=== PATIENT | female | born 1975 | race Two or more races ===

== ENCOUNTER 2020-03-03 16:56 | Outpatient (REF) | payer OTHER, SELFPAY | END 2020-03-03 16:57 | disposition home or self-care (01) | LOC: HO.LAB 16:56 | PROVIDERS: Visit Provider Internal Medicine | DX: Z20.828 Contact with and (suspected) exposure to other viral communicable diseases (principal) | CPT/HCPCS: C9803; U0003 ==

== ENCOUNTER → 2021-05-05 08:52 | Outpatient (BNVA) | payer OTHER, SELFPAY | PROVIDERS: PCP Internal Medicine; Visit Provider Physician Assistant Surgical | DX: E66.01 Morbid (severe) obesity due to excess calories (principal); Z68.41 Body mass index [BMI] 40.0-44.9, adult | CPT/HCPCS: 99202 ==

== ENCOUNTER 2021-05-09 09:26 | Outpatient (REF) | payer OTHER, SELFPAY ==
--- NOTE | ~2021-05-09 | XR_ITS ---
EXAMINATION: XR CHEST CLINICAL INFORMATION: Morbid obesity. COMPARISON: None TECHNIQUE: 2 views of the chest were obtained. FINDINGS: No significant abnormality is noted involving the heart, lungs, mediastinum, bony thorax or soft tissues. XR/XR chest 2V IMPRESSION: Unremarkable examination.
--- NOTE | 2021-05-09 09:42 | ECG_ITS ---
Test Reason : E66.01 Blood Pressure : / mmHG Vent. Rate : 076 BPM Atrial Rate : 076 BPM P-R Int : 166 ms QRS Dur : 094 ms QT Int : 400 ms P-R-T Axes : 069 033 017 degrees QTc Int : 450 ms Normal sinus rhythm Normal ECG No previous ECGs available Referred By: Micky Jade Electronically Signed By:SAMANTA ALEMAN MD
[2021-05-09 09:43] LABS: MANUAL DIFF FLAG NO
[2021-05-09 10:06] LABS: Basophils Percent Auto 0.3 % (0-2); Eosinophils Absolute Auto 0.1 X10*3/uL (0.0-0.4); Eosinophils Percent Auto 1.3 % (0-4); Hematocrit 32.9 % (37.0-47.0); Hemoglobin 10.3 g/dl (12.0-16.0); Imm Gran Abs Auto 0.04 X10*3/uL (0.00-0.03); Imm Gran Pct Auto 0.4 % (0.0-0.4); Lymphocytes Absolute Auto 2.4 X10*3/uL (1.2-4.9); Lymphocytes Percent Auto 26.7 % (20-40); Mean Corpuscular HGB Conc 31.3 g/dl (31.0-35.0); Mean Corpuscular Hemoglobin 28.7 pg (27.0-33.0); Mean Corpuscular Volume 91.6 fL (80.0-98.0); Mean Platelet Volume 10.5 fL (9.4-12.3); Monocytes Absolute Auto 0.6 X10*3/uL (0.1-1.2); Monocytes Percent Auto 6.7 % (2-11); Neutrophils Absolute Auto 5.9 x10*3/uL (2.0-8.3); Neutrophils Percent Auto 64.6 % (45-73); Platelet Count 238 X10*3/uL (160-400); Red Blood Count 3.59 X10*6/uL (4.20-5.50); Red Cell Distribution Width 13.5 % (11.0-16.0); White Blood Count 9.2 X10*3/uL (4.8-10.8)
[2021-05-09 10:23] LABS: Estimated Average Glucose 229 mg/dL; Hemoglobin A1c % 9.6 %
[2021-05-09 11:19] LABS: Folate 14.2 ng/mL (> or = 4.0); Vitamin B12 > 2000 pg/mL (200-900)
[2021-05-09 11:35] LABS: Alanine Aminotransferase 28 U/L (0-31); Albumin Level 3.7 g/dL (3.5-5.0); Alkaline Phosphatase 77 U/L (39-117); Anion Gap 11 (12-20); Aspartate Amino Transferase 25 U/L (5-31); Bilirubin Total 0.4 mg/dL (0.0-1.0); Blood Urea Nitrogen 15 mg/dL (9-16); C Reactive Protein 0.61 mg/dL (< or = 0.50); Calcium 9.4 mg/dL (8.4-10.2); Carbon Dioxide 26 mmol/L (22-29); Chloride 105 mmol/L (96-108); Cholesterol 165 mg/dL; Estimated Glomerular Filt Rate > 60; Glucose Random 181 mg/dL (60-115); HDL Cholesterol 52 mg/dL; Iron 79 mcg/dL (30-160); LDL Cholesterol Calculated 96 mg/dl; Percent Iron Saturation 22 % (15-50); Potassium 4.3 mmol/L (3.3-5.1); Sodium 138 mmol/L (135-145); Total Iron Binding Capacity 354 mcg/dL (228-428); Triglycerides 89 mg/dL; Unsaturated Iron Binding 275 ug/dL
[2021-05-09 11:59] LABS: Ferritin 36 ng/mL (10-250); TSH reflex Free T4 1.15 uIU/mL (0.32-4.0); Vitamin D 25-OH Total 34.4 ng/mL (>30)
[2021-05-10 17:46] LABS: Calcium (PTHI) 9.1 mg/dL (8.6-10.2); PTHI 42 pg/mL (14-64)
[2021-05-12 03:11] LABS: Zinc 68 mcg/dL (60-130)
[2021-05-13 18:02] LABS: Vitamin B1 6 nmol/L (8-30)
[2021-05-14 21:01] LABS: Vitamin A 38 mcg/dL (38-98)
== END 2021-05-09 09:27 | disposition home or self-care (01) ==
LOC: HO.LAB 09:26
PROVIDERS: PCP Internal Medicine; Visit Provider Physician Assistant Surgical
DX: E66.01 Morbid (severe) obesity due to excess calories (principal); Z68.41 Body mass index [BMI] 40.0-44.9, adult
CPT/HCPCS: 36415; 71046; 80053; 80061; 82306; 82607; 82728; 82746; 83036; 83540; 83970; 84425; 84443; 84590; 84630; 85025; 86140; 93005

== ENCOUNTER 2021-05-12 08:51 | Outpatient (REF) | payer OTHER, SELFPAY ==
[2021-05-13 14:25] LABS: H Pylori Breath Test Positive (Negative)
== END 2021-05-12 08:52 | disposition home or self-care (01) ==
LOC: HO.LNP 08:51
PROVIDERS: Physician Assistant Surgical; PCP Internal Medicine; Visit Provider Physician Assistant
DX: E66.01 Morbid (severe) obesity due to excess calories (principal); Z68.41 Body mass index [BMI] 40.0-44.9, adult
CPT/HCPCS: 83013; 99211

== ENCOUNTER → 2021-05-24 08:17 | Outpatient (BNVA) | payer OTHER, SELFPAY | PROVIDERS: PCP Internal Medicine; Visit Provider Dietitian, Registered | DX: E66.01 Morbid (severe) obesity due to excess calories (principal); Z68.41 Body mass index [BMI] 40.0-44.9, adult | CPT/HCPCS: 97802 ==

== ENCOUNTER → 2021-06-03 08:15 | Outpatient (BNVA) | payer OTHER, SELFPAY | PROVIDERS: PCP Internal Medicine; Visit Provider Surgery | DX: Z13.89 Encounter for screening for other disorder (principal) ==

== ENCOUNTER 2021-06-16 08:19 | Outpatient (REF) | payer OTHER, SELFPAY ==
--- NOTE | ~2021-06-16 | US_ITS ---
EXAMINATION: US COMPLETE ABDOMEN WITH LIVER ELASTOGRAPHY CLINICAL INFORMATION: Obesity COMPARISON: None. TECHNIQUE: Real-time imaging of the abdominal viscera. Noninvasive ultrasound liver fibrosis assessment is performed using Pool ElastPQ point quantification shear wave elastography (2D-SWE) with a C5-2 MHz transducer. Multiple elastography samples are obtained. Exam is limited due to body habitus. FINDINGS: PANCREAS: Not well visualized due to bowel gas ABDOMINAL AORTA: The proximal, middle, and distal aortic segments are normal in caliber. INFERIOR VENA CAVA: Visualized portions are normal. LIVER: Liver echotexture is slightly increased. The liver is normal in size and contour.. No focal lesion or intrahepatic biliary duct dilatation. The right lobe measures 15 cm in length. The left lobe measures 4 cm in length. Portal flow is normal/hepatopedal Shear wave liver elastography median stiffness is 1.1 m/s (reference: normal median stiffness is 1.3 m/s or less). IQR/median stiffness to assess sampling precision is 0.16 (reference: good quality data set is IQR/median stiffness of 0.15 or less). GALLBLADDER: Normal. The gallbladder is physiologically distended without evidence of stones, sludge, polyps, wall thickening or pericholecystic fluid. COMMON BILE DUCT: Normal in caliber measuring 0.4 cm in diameter. RIGHT KIDNEY: Normal. No hydronephrosis. No renal calculi or focal parenchymal lesions. The kidney measures 10.5 cm in maximum dimension. LEFT KIDNEY: Normal. No hydronephrosis. No renal calculi or focal parenchymal lesions. The kidney measures 11.8 cm in maximum dimension. SPLEEN: Normal. The spleen measures 12.3 cm in maximum dimension. FREE FLUID: None. US/US abdomen comp w elastography IMPRESSION: 1. Impression: Limited exam due to body habitus. Slightly echogenic liver. Nonvisualization of the pancreas. 2. Liver elastography: Adequate liver sampling. Normal liver stiffness. REFERENCE: Society of Radiologists in Ultrasound Liver Stiffness Thresholds (2020): LIVER STIFFNESS THRESHOLDS: *Liver Stiffness equal or less than 1.3 m/s: High probability of being normal. *Liver Stiffness less than 1.7 m/s: In the absence of other known clinical signs, rules out compensated advanced chronic liver disease. *Liver Stiffness 1.7-2.1 m/s: Suggestive of compensated advanced chronic liver disease but need further test for confirmation. *Liver Stiffness over 2.1 m/s: Rules in compensated advanced chronic liver disease. *Liver Stiffness over 2.4 m/s: Suggestive of clinically significant portal hypertension. QUALITY OF DATA SET: *IQR/Median value equal or less than 0.15 implies a quality data set. *IQR/Median value over 0.15 implies a poor quality data set. SIGNIFICANT CHANGE FROM PRIOR EXAM: Significant change if liver stiffness measurement is 10% or greater from prior exam. OTHER CONSIDERATIONS: The stage of liver fibrosis may be overestimated in the setting of acute hepatitis, liver inflammation, elevated liver function tests, hepatic vascular congestion, obstructive cholestasis, non-fasting state, and infiltrative diseases such as amyloidosis and lymphoma. In some patients with NAFLD, the liver stiffness thresholds for compensated advanced chronic liver disease may be lower. In causes other than viral hepatitis and NAFLD, liver stiffness thresholds are not well established.
--- NOTE | ~2021-06-16 | FL_ITS ---
EXAMINATION: XR FLUOROSCOPY UPPER GI WITH AIR CLINICAL INFORMATION: 1 abnormal COMPARISON: None TECHNIQUE: Routine upper GI air-contrast study was performed. FINDINGS: Following oral administration of thick barium and effervescent granules there is normal propagation of bolus from the oral cavity through the pharynx, esophagus into stomach without any evidence of obstruction, narrowing or stricture. The course, caliber and peristalsis of the stomach, duodenal bulb and the sweep is normal. The mucosal pattern of the stomach and the duodenum is normal. No gastroesophageal reflux or hiatal hernia seen. FLUOROSCOPY TIME: 1.2 minutes DOSE AREA PRODUCT: 21.845 Gycm2 FL/FL upper GI w air IMPRESSION: Unremarkable upper GI air-contrast study.
[2021-06-19 10:33] LABS: H Pylori Breath Test Negative (Negative)
== END 2021-06-16 08:20 | disposition home or self-care (01) ==
LOC: HO.US 08:19
PROVIDERS: Physician Assistant Surgical; Visit Provider Surgery
DX: Z01.818 Encounter for other preprocedural examination (principal); E66.01 Morbid (severe) obesity due to excess calories; Z68.41 Body mass index [BMI] 40.0-44.9, adult; E11.9 Type 2 diabetes mellitus without complications
CPT/HCPCS: 36415; 74246; 76705; 76981; 83013; 97803; 99211

== ENCOUNTER → 2021-06-30 08:06 | Outpatient (BNVA) | payer OTHER, SELFPAY | PROVIDERS: PCP Internal Medicine; Referring Provider Physician Assistant Surgical; Visit Provider Dietitian, Registered | DX: E66.9 Obesity, unspecified (principal); Z68.39 Body mass index [BMI] 39.0-39.9, adult; Z71.3 Dietary counseling and surveillance | CPT/HCPCS: 97803 ==

== ENCOUNTER → 2021-07-04 09:27 | Outpatient (BNVA) | payer OTHER, SELFPAY | PROVIDERS: PCP Internal Medicine; Visit Provider Surgery ==

== ENCOUNTER → 2021-07-20 13:37 | Outpatient (BNVA) | payer OTHER, SELFPAY | PROVIDERS: PCP Internal Medicine; Visit Provider Surgery | DX: Z01.818 Encounter for other preprocedural examination (principal) ==

== ENCOUNTER → 2021-07-22 08:56 | Outpatient (BNVA) | payer OTHER, SELFPAY | PROVIDERS: PCP Internal Medicine; Visit Provider Surgery | DX: Z13.89 Encounter for screening for other disorder (principal) ==

== ENCOUNTER 2021-07-27 11:46 | Inpatient (IN) | payer OTHER, SELFPAY ==
[2021-07-21 13:24] VITALS: BMI 37.9
[2021-07-22 08:50] LABS: MANUAL DIFF FLAG NO
[2021-07-22 09:12] LABS: Basophils Percent Auto 0.3 % (0-2); Eosinophils Absolute Auto 0.1 X10*3/uL (0.0-0.4); Eosinophils Percent Auto 0.8 % (0-4); Hematocrit 34.8 % (37.0-47.0); Hemoglobin 10.9 g/dl (12.0-16.0); Imm Gran Abs Auto 0.02 X10*3/uL (0.00-0.03); Imm Gran Pct Auto 0.3 % (0.0-0.4); Lymphocytes Absolute Auto 1.9 X10*3/uL (1.2-4.9); Lymphocytes Percent Auto 25.3 % (20-40); Mean Corpuscular HGB Conc 31.3 g/dl (31.0-35.0); Mean Corpuscular Hemoglobin 28.4 pg (27.0-33.0); Mean Corpuscular Volume 90.6 fL (80.0-98.0); Mean Platelet Volume 10.7 fL (9.4-12.3); Monocytes Absolute Auto 0.7 X10*3/uL (0.1-1.2); Monocytes Percent Auto 8.5 % (2-11); Neutrophils Percent Auto 64.8 % (45-73); Platelet Count 247 X10*3/uL (160-400); Red Blood Count 3.84 X10*6/uL (4.20-5.50); Red Cell Distribution Width 14.6 % (11.0-16.0); White Blood Count 7.6 X10*3/uL (4.8-10.8)
[2021-07-22 09:20] LABS: INTERNATIONAL NORM RATIO 1.1 (0.9-1.1); Prothrombin Time 12.7 SEC (9.9-13.0)
[2021-07-22 09:23] LABS: Partial Thromboplastin Time 37.1 SEC (24.1-38.0)
[2021-07-22 09:29] LABS: Estimated Average Glucose 111 mg/dL; Hemoglobin A1c % 5.5 %
[2021-07-22 09:38] LABS: Alanine Aminotransferase 20 U/L (0-31); Alkaline Phosphatase 80 U/L (39-117); Anion Gap 10 (12-20); Aspartate Amino Transferase 26 U/L (5-31); Bilirubin Total 0.7 mg/dL (0.0-1.0); Blood Urea Nitrogen 11 mg/dL (9-16); C Reactive Protein 1.84 mg/dL (< or = 0.50); Calcium 9.5 mg/dL (8.4-10.2); Carbon Dioxide 25 mmol/L (22-29); Chloride 108 mmol/L (96-108); Cholesterol 208 mg/dL; Creatinine Clr Calc Pharmacy 102.1; Estimated Glomerular Filt Rate > 60; Glucose Random 88 mg/dL (60-115); HDL Cholesterol 40 mg/dL; LDL Cholesterol Calculated 155 mg/dl; Potassium 4.7 mmol/L (3.3-5.1); Sodium 138 mmol/L (135-145); Total Protein 7.5 g/dL (6.5-8.0); Triglycerides 69 mg/dL
[2021-07-22 10:02] LABS: Insulin 11 uU/mL (2-29)
--- NOTE | 2021-07-23 08:28 | MHC.SHP ---
Pre-Procedural Eval Section A Date of Service: 07/23/21 The patient is an INPATIENT: Yes The History & Physical has been completed within 30 days and I have reviewed it.: Yes Section B Chief Complaint: obesity Relevant Family History (Specify if Yes): No Relevant Social History: None Present Medications: None Medical History: No relevant PMH History of Previous Operations: No relevant previous surgery Allergies: Allergies Allergy/AdvReac Type Severity Reaction Status Date / Time lisinopril AdvReac Mild Cough Verified 07/21/21 13:24 Review of Systems Sugical H&P ROS: Negative: Constitution, Cardiovascular, Respiratory, Neurological, Psychiatric, Hem-Onc, Allergic/Immunologic, Gastrointestinal, Genitourinary, Musculoskeletal, Integumentary, Endocrine and Eyes/Ears/Nose/Throat Exam Surgical H&P Exam: Normal: HEENT, Normal: Heart, Normal: Lungs, Normal: Extremities, Normal: Abdomen, Normal: Skin and Normal: Neurological Plan Diagnosis/Plan: Unchanged I have reviewed the history and physical and performed a pertinent physical examination on my patient. No changes have occurred unless specified.
--- NOTE | 2021-07-26 08:20 | P.CONAN_ITS ---
Documented by User: Alicia Fitzpatrick NP 07/26/21 08:21 HPI - Anesthesia Eval Consult details Narrative: 46yo F for Gastrectomy Sleeve,EGD,possible diaphragmatic hernia,Possible ventral hernia,possible open PMFSH Active Problems Active Problems: All Active Problems (Updated 07/21/21 @ 13:24 by Silva Gold RN) Morbid obesity with BMI of 40.0-44.9, adult (Acute) Diabetes (Acute) HTN (hypertension) (Acute) Hypercholesteremia (Acute) Obesity (Acute) BMI 39.0-39.9,adult (Acute) BMI 38.0-38.9,adult (Acute) Anxiety (Acute) Past Medical History Medical History (Updated 07/27/21 @ 13:56 by Festus Bolanos MD) Anxiety COVID-19 vaccine series completed Diabetes Elevated cholesterol HTN (hypertension) Steatosis, liver Family History Family History (Updated 05/05/21 @ 09:21 by Bridgette Molina) Mother Hypertension Diabetes Father Diabetes Sister Hypertension Sister Hypertension Sister Hypertension Thyroid condition Brother Hypertension Brother Hypertension Diabetes Brother Hypertension Brother No problems noted. Surgical History Surgical History (Updated 05/05/21 @ 09:22 by Bridgette Molina) No history of previous surgery Social History Social History (Updated 05/05/21 @ 09:21 by Bridgette [employer]) Are you a primary skin care specialist to a significant other at home: No Do you presently have visiting nurse or other home services: No Alcohol intake: never Patient Tobacco Use Status: Never used Tobacco Use of substances other than those prescribed or required for medical reasons: No Have you been hit, kicked, punched, or otherwise hurt by someone within the past year? If so, by whom?: No Are you DNR?: No Advance Directives: No (states is sister but no official form @ [facility] [place]) Advance Directives Information Provided: Yes (brochure mailed) Advance Directives on File: No Recently lost weight without trying: No Eating poorly because of decreased appetite: No Nutrition Risks: No Nutritional Risk Patient : No FDLMP: 06/27/21 Poor oral hygiene: No (has crowns upper front) Meds Allergies Allergy/AdvReac Type Severity Reaction Status Date / Time lisinopril AdvReac Mild Cough Verified 07/27/21 12:05 Home Medications Medication Instructions Recorded Confirmed Last Taken Type atorvastatin 20 mg tablet 20 mg PO DAILY 05/05/21 07/27/21 07/26/21 History glipizide 5 mg tablet, extended 5 mg PO DAILY 05/05/21 07/27/21 07/26/21 History release 24 hr labetalol 100 mg tablet 100 mg PO BID 05/05/21 07/27/21 07/26/21 History sitagliptin 100 mg tablet (Januvia) 100 mg PO DAILY 05/05/21 07/20/21 07/25/21 History Exam Exam Date and Time: July 26, 2021 0820 Height,Weight and Vital Signs: Height 5 ft 3 in Weight 97.069 kg Pertinent Lab Results Pertinent Lab Results: Laboratory Tests 07/22/21 07/22/21 07/22/21 08:45 08:48 08:48 WBC 7.6 RBC 3.84 L Hgb 10.9 L Hct 34.8 L MCV 90.6 MCH 28.4 MCHC 31.3 RDW 14.6 Plt Count 247 MPV 10.7 Immature Gran % (Auto) 0.3 Neut % (Auto) 64.8 Lymph % (Auto) 25.3 Scurry % (Auto) 8.5 Eos % (Auto) 0.8 Baso % (Auto) 0.3 Lymph # (Auto) 1.9 Scurry # (Auto) 0.7 Eos # (Auto) 0.1 Baso # (Auto) 0.0 Abs Immat Gran (auto) 0.02 Absolute Neuts (auto) 5.0 Absolute Nucleated RBC 0.000 Nucleated RBC % (auto) 0.0 PT 12.7 INR 1.1 APTT 37.1 Sodium Potassium Chloride Carbon Dioxide Anion Gap BUN Creatinine Estim Creat Clear Calc Estimated GFR Random Glucose Estimat Average Glucose Hemoglobin A1c % Insulin Level Calcium Total Bilirubin AST ALT Alkaline Phosphatase C-Reactive Protein Total Protein Albumin Triglycerides Cholesterol LDL Cholesterol, Calc HDL Cholesterol TSH Blood Type O Positive Antibody Screen NEGATIVE 07/22/21 07/22/21 08:48 08:48 WBC RBC Hgb Hct MCV MCH MCHC RDW Plt Count MPV Immature Gran % (Auto) Neut % (Auto) Lymph % (Auto) Scurry % (Auto) Eos % (Auto) Baso % (Auto) Lymph # (Auto) Scurry # (Auto) Eos # (Auto) Baso # (Auto) Abs Immat Gran (auto) Absolute Neuts (auto) Absolute Nucleated RBC Nucleated RBC % (auto) PT INR APTT Sodium 138 Potassium 4.7 Chloride 108 Carbon Dioxide 25 Anion Gap 10 L BUN 11 Creatinine 0.78 Estim Creat Clear Calc 102.1 Estimated GFR > 60 Random Glucose 88 Estimat Average Glucose 111 Hemoglobin A1c % 5.5 Insulin Level 11 Calcium 9.5 Total Bilirubin 0.7 AST 26 ALT 20 Alkaline Phosphatase 80 C-Reactive Protein 1.84 H Total Protein 7.5 Albumin 4.0 Triglycerides 69 Cholesterol 208 D LDL Cholesterol, Calc 155 HDL Cholesterol 40 D TSH 1.80 Blood Type Antibody Screen Narrative Narrative: EKG 05/2021 Vent. Rate : 076 BPM ? ? Atrial Rate : 076 BPM ?? P-R Int : 166 ms? QRS Dur : 094 ms ? ? QT Int : 400 ms ? ? ? P-R-T Axes : 069 033 017 degrees ?? QTc Int : 450 ms ? Normal sinus rhythm Normal ECG No previous ECGs available Assessment and Plan Assessment Anesthesia Assessment: Chart Reviewed Documented by User: Percy Norton MD 07/27/21 13:59 [facility] Past Medical History Medical History (Updated 07/27/21 @ 13:56 by Festus Bolanos MD) Anxiety COVID-19 vaccine series completed Diabetes Elevated cholesterol HTN (hypertension) Steatosis, liver Family History Family History (Updated 05/05/21 @ 09:21 by Bridgette [employer]) Mother Hypertension Diabetes Father Diabetes Sister Hypertension Sister Hypertension Sister Hypertension Thyroid condition Brother Hypertension Brother Hypertension Diabetes Brother Hypertension Brother No problems noted. Family history of problems with anesthesia: No Surgical History Surgical History (Updated 05/05/21 @ 09:22 by Bridgette Molina) No history of previous surgery History of Problems with Anesthesia: No Social History Social History (Updated 05/05/21 @ 09:21 by Bridgette Molina) Are you a primary skin care specialist to a significant other at home: No Do you presently have visiting nurse or other home services: No Alcohol intake: never Patient Tobacco Use Status: Never used Tobacco Use of substances other than those prescribed or required for medical reasons: No Have you been hit, kicked, punched, or otherwise hurt by someone within the past year? If so, by whom?: No Are you DNR?: No Advance Directives: No (states is sister but no official form @ [facility] [place]) Advance Directives Information Provided: Yes (brochure mailed) Advance Directives on File: No Recently lost weight without trying: No Eating poorly because of decreased appetite: No Nutrition Risks: No Nutritional Risk Patient : No FDLMP: 06/27/21 Poor oral hygiene: No (has crowns upper front) Meds Allergies Allergy/AdvReac Type Severity Reaction Status Date / Time lisinopril AdvReac Mild Cough Verified 07/27/21 12:05 Home Medications Medication Instructions Recorded Confirmed Last Taken Type atorvastatin 20 mg tablet 20 mg PO DAILY 05/05/21 07/27/21 07/26/21 History glipizide 5 mg tablet, extended 5 mg PO DAILY 05/05/21 07/27/21 07/26/21 History release 24 hr labetalol 100 mg tablet 100 mg PO BID 05/05/21 07/27/21 07/26/21 History sitagliptin 100 mg tablet (Januvia) 100 mg PO DAILY 05/05/21 07/20/21 07/25/21 History Exam Airway Mallampati Class: II TM Dist: >3cm Neck ROM: Full Partial: Upper (permanent) Loose/Missing/Broken Teeth: No Heart: rrr+[id number] Lungs: cta b/l Assessment and Plan Assessment Anesthesia Assessment: Anesthesia Plan Discussed Final Anesthetic Review Family History of Problems with Anesthesia: No History of Problems with Anesthesia: No NPO: Yes ASA Class: III Final Preanesthetic Review: No Changes in Pt Med Stat, Meds/Allgs Chart Reviewed, Consent Obtained/Reviewed and Anes Risks/Benef Reviewed Patient Risk: Intermediate Procedure Risk: Intermediate Assessment/Block/Sedation in SS: Assess/Block/Sedation-SS Anesthetic Plan Anesthetic Plan: GA and Agree w/ Assess. and Plan Disposition: Standard PACU
[2021-07-26 15:41] LABS: COVID-19 Test Negative (Negative); IDNOW Serial# 16C4AD1C
[2021-07-27] VITALS (12 sets, daily range): BP systolic 133–178; BP diastolic 57–90; PULSE 74–88; RESP 16–26; TEMP 36.2–36.7; O2SAT 97–100
[2021-07-27 12:11] LABS: UPreg QC Valid YES; Urine Pregnancy NEGATIVE (NEGATIVE)
[2021-07-27 12:27] LABS: Glucose, Whole Blood 71 mg/dL (60-115)
[2021-07-27] MEDS: Lactated Ringers 1,000 ML 100 ML IVCONT ×2 (13:13→19:59)
[2021-07-27] MEDS: Lactated Ringers 1,000 ML 999 ML IV (13:14)
--- NOTE | 2021-07-27 13:52 | PM.OP ---
Brief Operative Note Date of Service: 07/27/21 Pre-op diagnosis: Severe obesity with comorbidities (see below) Post-op diagnosis: same Procedure: INITIAL PATIENT BMI ON PRESENTATION AT OUR OFFICE: 44.3 kg/m2 LAST BMI BEFORE SURGERY: 37.4 kg/m2 COMORBIDITIES: hypertension, non-insulin dependent diabetes, hyperlipidemia, anxiety, liver steatosis ?The patient presented to the Weight Management Program with significant obesity that was negatively impacting the patient's comorbidities as listed above.? The program is a phased program with a special focus on preoperative medical weight management to promote substantial weight loss and prepare the patients for the second phase of the program: bariatric surgery. The patient participated in an intensive weekly lifestyle ?intervention and exercise program during which the patient ?has lost between the initial office visit and the last preoperative visit 38.4lbs, or 15.35% of initial actual body weight. It was deemed appropriate for the patient to now have bariatric surgery. In light of the current Covid-19 pandemic and the well documented strong association of obesity and increased risk of worse outcomes if infected with Covid-19 (REFERENCES:https://pubmed.ncbi.nlm.nih.gov/63883604/,?https://pubmed.ncbi.nlm.nih.gov/24641432/), any delay in undergoing bariatric surgery may lead to the patient's worsening health condition and increased?risk of more severe Covid-19 disease if infected. In addition a recent?study from [facility] published in [employer] on 02/28/2021 ([email or web address]) found that, among patients with obesity, substantial weight loss achieved with surgery was associated with improved outcomes of COVID-19 infection. The findings suggest that obesity can be a modifiable risk factor for the severity of COVID-19 infection. In addition, the patient met the BMI-criteria for bariatric surgery based on the BMI on initial presentation. The patient should not be penalized for achieving such weight loss because ?it is not sustainable long-term without surgical intervention and it was achieved in preparation for bariatric surgery ?under my direction and based on my published research ([email or web address]).[email or web address] and?https://www.soard.org/article/[email or web address])37006-X/pdf) ?that a 10% preoperative weight loss improves long-term weight loss after surgery and reduces perioperative complications.? Insurance carriers such as [facility] have endorsed my recommendations ?and have included in their policies criteria to include a 10% preoperative weight loss requirement. PROCEDURE: Esophago-gastroscopy, laparoscopic sleeve gastrectomy and laparoscopic gastropexy INDICATIONS: This is a 46 year-old female who was electively scheduled for laparoscopic, possibly open sleeve gastrectomy. The risks and complications of the procedure were discussed with the patient in advance, particularly the possibility of ; pulmonary embolism; staple line leak; bleeding; GERD; cardiac, pulmonary, or renal complications; as well as long-term problems such as insufficient weight loss, vitamin deficiency, strictures, or ulcers. The patient understood all the risks, and was in agreement to proceed with surgery. DESCRIPTION OF PROCEDURE: After informed consent was obtained from the patient, the patient was given preoperative antibiotics, and was transferred to the operating room. After successful induction of general anesthesia, pneumatic compression devices were placed on both lower extremities. An upper endoscopy was performed next. The oropharynx and esophagus appeared to be within normal limits. There was no diaphragmatic hernia present consistent with the findings of the preoperative upper GI. The stomach was entered. Then after all fluid and air were suctioned and the stomach was fully decompressed, the scope was withdrawn and secured in the mid esophagus. The patient was then prepped and draped in the usual sterile manner, and abdominal access was established at the right upper quadrant with the Essence technique. A 12 mm blunt port was inserted, and the abdomen was insufflated with CO2 to a pressure of 15 mmHg. Under direct visualization, additional ports were placed, specifically two 5 mm Versi-step ports to the left upper quadrant, and a 5 mm Versi-Step port to the right upper quadrant. 1% lidocaine plain was used to infiltrate all port sites as well as all fascia defects. Following that, the patient was placed in a steep reverse Trendelenburg position. An additional 5 mm port was placed to the right flank for the Mediflex retractor that was used to retract the left lobe of the liver. The gastro-esophageal fat pad was opened with the ultrasonic device (Thunderbeat, Olympus) and the anterior esophagus and hiatus were exposed. The angle of His was opened with the ultrasonic device the fundus of the stomach from any diaphragmatic and splenic attachments. I then opened the gastrocolic ligament between the transverse colon and the greater curvature of the stomach with the ultrasonic device to enter the lesser sac and facilitate the ligation of the short gastric vessels. I started at a mid-point along the greater curvature and using the Thunderbeat, all short gastric vessels were divided all the way to the angle of His until the left yumiko was completely dissected at its entirety. I then divided the gastro-colic ligament distally to a distance of about 3-4 cm proximal to the pylorus.? The stomach was then divided transversely with one Endo COLLINS-45 purple and five COLLINS-6s0 articulating orange loads using the AEON stapler and loads. Every effort was made that the gastric sleeve had a tubular shape and an even caliber throughout. Once the sleeve resection was completed, the staple line of the gastric sleeve was reinforced with Hemoclips. The resected stomach was retrieved without difficulty from the Essence port. A gastropexy was then performed in order to prevent postoperative GERD and partial gastric volvulus. Several interrupted 2.0 Surgidac sutures were placed between the sleeve's staple line and the previously divided greater omentum and gastro-colic ligament using the Endo-Stitch device. ?An upper endoscopy was performed. There was no narrowing at the GE junction. The scope was easily advanced all the way to the pylorus which was clearly visualized. There was no narrowing anywhere and the sleeve's caliber was even throughout. The sleeve's staple line was inspected and there was no evidence of ischemia, bleeding or dehiscence. At that point the gastroscope was withdrawn from the patient?s mouth while we were decompressing the bowel and the stomach from any remaining air. I looked into the lesser sac to see how the sleeve was situating and it was situating well. There was no bleeding from the staple line, spleen, or short gastric vessels. The Mediflex retractor was removed, and the undersurface of the liver was inspected and there was no bleeding. The patient was placed in supine position. I closed the fascial defect of the 12 mm port site with a figure of eight #1 Polysorb suture. Then 100 cc 0.25 % Marcaine plain with 10 mg of Dexamethasone were used to infiltrate the fascial closure as well as all skin incisions. A total of 7ml of Zynrelef were applied in the wound. At this point, the abdomen was deflated, all ports were removed under direct vision, and no bleeding was noted from any of the port sites. The skin incisions were irrigated with saline and were closed with 4-0 absorbable monofilament sutures. Steri-Strips and OpSites were used to cover all incisions. The patient was extubated and was transferred in stable condition to the recovery room for further care. I was present and performed all zuniga parts of the procedure. Ms. Jacobs was the it assistant. There were no residents to assist with this case. Ashvin Bolanos MD, PhD, FACS Surgeon: Festus Bolanos MD Anesthesia: GETA, local and other (TAP block) Was an Quality Compliance Coordinator used for this Procedure?: No Quality Compliance Coordinator: Kimberly Jacobs Estimated blood loss (mL): 10 IV fluids (mL): 2,800 Urine output (mL): 0 (No Stevens to record output) Pathology: other (Stomach) Condition: stable Disposition: PACU
--- NOTE | 2021-07-27 13:54 | PM.PNGS ---
Subjective Subjective Date of Service: 07/28/21 Interval history: Patient has mild incisional pain, but was able to ambulate and use the incentive spirometer. She is tolerating phase 1 bariatric diet Physical Exam Vital Signs: Vital Signs: Last Vital Signs Temp 98.0 F 07/27/21 12:05 Pulse 88 07/27/21 12:05 Resp 16 07/27/21 12:05 BP 178/57 H 07/27/21 12:05 Pulse Ox 100 07/27/21 12:05 BMI result Body Mass Index 37.9 GI: Inspection: Yes normal to inspection, Yes incision (clean, dry and intact) and Yes obesity Extrem: Right lower extremity: normal to inspection (no calf tenderness) Left lower extremity: normal to inspection (no cakf tenderness) Objective Data Active Medications Lactated Ringer's (Lr) 1,000 mls @ 100 mls/hr IVCONT .Q10H DELIA Last Admin: 07/27/21 13:13 Dose: 100 mls/hr Documented by: CLAIRE Lactated Ringer's (Lr) 1,000 mls @ 999 mls/hr IV .Q1H1M DELIA Stop: 07/27/21 14:00 Last Admin: 07/27/21 13:14 Dose: 999 mls/hr Documented by: CLAIRE Labs CBC & Chem 7: 07/28/21 05:25 07/28/21 05:25 Labs: Laboratory Results - last 24 hr 07/26/21 07/27/21 07/27/21 14:40 11:45 12:21 POC Glucose 71 Urine Test NEGATIVE COVID-19 (RAHEL) Negative COVID-19 Clin Com See Note Procedures Date of Service Date of Service: 07/28/21 Progress Note: A&P Assessment and plan (1) Obesity: Status: Acute Assessment and Plan: s/p laparoscopic sleeve gastrectomy and gastropexy Doing well Check am labs. If OK, will discharge home (2) BMI 37.0-37.9, adult: Status: Acute (3) HTN (hypertension): Status: Acute (4) Hypercholesteremia: Status: Acute (5) Anxiety: Status: Acute (6) Diabetes: Status: Acute (7) Steatosis, liver: Status: Acute (8) S/P laparoscopic sleeve gastrectomy: Status: Acute Time Spent With Patient Time: Total time spent is greater than 50% in coordination of care (as documented) at patient's floor/unit and/or counseling patient: Quality Stroke Does the patient have a stroke diagnosis?: No VTE Prior VTE?: No VTE Risk Level:: Surgical - moderate VTE Device Contraindication: N/A - Device Ordered VTE Drug Contraindication: Treatment Not Indicated
[2021-07-27 14:27] LABS: Glucose, Whole Blood 70 mg/dL (60-115)
--- NOTE | 2021-07-27 17:28 | PM.DS ---
DS: Providers Provider Date of Service: 07/28/21 Date of admission: 07/27/21 11:46 Primary care physician: Rosa Hollis MD DS: Diagnosis Discharge Diagnosis (1) Obesity: Status: Acute (2) BMI 37.0-37.9, adult: Status: Acute (3) HTN (hypertension): Status: Acute (4) Hypercholesteremia: Status: Acute (5) Anxiety: Status: Acute (6) Diabetes: Status: Acute (7) Steatosis, liver: Status: Acute DS: Summary Hospital Course Hospital Course: ADMITTING DIAGNOSIS: morbid obesity, hyperlipidemia, diabetes, HTN DISCHARGE DIAGNOSIS: same, s/p laparoscopic sleeve gastrectomy PAST SURGICAL HISTORY: none PROCEDURE: upper endoscopy, laparoscopic sleeve gastrectomy DISCHARGE SUMMARY: History of Present Illness: The patient is a 46 year-old woman with a BMI of 44.3 kg/m2 and associated co-morbidities as described above. The patient had extensive work-up,lost 35.7 lbs preoperatively and was electively scheduled for laparoscopic, possible open sleeve gastrectomy and gastropexy. Risks and complications of the surgery were discussed with the patient in advance, particularly the possibility of , pulmonary embolism, anastomotic leak, bleeding, bowel injury, GERD, cardiac, renal or pulmonary complications. The patient understood all the risks and was in agreement with the surgical plan. Hospital Course: The patient underwent an uneventful laparoscopic sleeve gastrectomy with gastropexy on the day of admission. Postoperatively, the patient was transferred to the surgical floor. The patient received IV Acetaminophen and IV dilaudid for pain control. Patient was started on bariatric phase 1 diet POD #0. On postoperative day one, the patient was feeling well without nausea, vomiting, fevers, or tachycardia. The patient had some mild incisional pain and the abdomen was soft. On the morning of postoperative day one, the patient was continued on 1 ounce of water or ice every half hour. During the day, the patient did fairly well, having some incisional pain, but able to ambulate adequately and to tolerate liquids well. Since the patient is doing well, we decided that the patient was ready to be discharged. The patient was given instructions to follow-up with me next week and to call my office for any fever over 101, persistent abdominal pain, nausea, vomiting, GERD, symptoms of DVT such as calf tenderness, or leg swelling, or pulmonary embolism such as chest pain or shortness of breath. The patient was also instructed to drink 40-60 ounces of liquids per day using the 1-ounce cups. The patient had been given prescriptions for Tylenol for pain, Zofran prn for nausea, and pantoprazole and carafate previously. The patient was encouraged to ambulate and use the incentive spirometer. The patient was allowed to shower, but no baths, and encouraged to stay active at home. All of these instructions were given to the patient personally. All questions were answered and the patient understood all instructions, the instructions were also given to the patient in print. Time Spent with Patient Time attestation: Total time spent providing and/or coordinating discharge services: Discharge coordination time: Less than 30 minutes Quality: Safe Use of Opioids Does Pt have an Active Cancer Diagnosis on the Problem List?: No Quality: Stroke Does the patient have a stroke diagnosis?: No Physical Exam Vital Signs: Vital Signs: Last Vital Signs Temp 98.0 F 07/27/21 12:05 Pulse 88 07/27/21 12:05 Resp 16 07/27/21 12:05 BP 178/57 H 07/27/21 12:05 Pulse Ox 100 07/27/21 12:05 BMI result Body Mass Index 37.9 DS: Data Data Completed and Pending Pending studies at discharge: Pending at discharge 07/27/21 16:16 Surgical [PTH] Routine Labs on day of discharge: Laboratory Results - last 24 hr 07/27/21 07/27/21 07/27/21 11:45 12:21 14:21 POC Glucose 71 70 Urine Test NEGATIVE Discharge Plan Discharge Anticipated Discharge Date/Time: 07/28/21 10:23 Patient Disposition: Home, Self-Care Discharge Diagnosis: s/p sleeve gastrectomy Referrals: Rosa Hollis MD [Primary Care Provider] - 1 Week Discharge Medications: Continued labetalol 100 mg tablet 100 mg PO BID 0RF pantoprazole 40 mg tablet,delayed release (DR/EC) 40 mg PO DAILY Qty: 30 2RF sucralfate 100 mg/mL suspension 10 ml PO BID Qty: 400 2RF ondansetron HCl 4 mg tablet 4 mg PO Q12H Qty: 20 0RF Held atorvastatin 20 mg tablet 20 mg PO DAILY 0RF Hold Instructions: Resume on 08/01/21. Discontinued thiamine HCl (vitamin B1) 100 mg tablet 100 mg PO DAILY Qty: 30 2RF Januvia 50 mg tablet 1 tab PO DAILY 0RF glipizide 5 mg tablet extended release 24hr 5 mg PO DAILY 0RF Discharge Orders: Discharge Order (Routine); Ordered 07/28/21 Ordered By: Festus Bolanos Activity on Discharge: No heavy lifting Stand Alone Forms: Patient Portal Discharge page Care Plan Goals: weight loss Health Concerns: obesity Plan of Treatment: No tub baths, sex or returning to work until discussed at first post op appointment. No exercise, alcohol, tobacco or illegal drug use. Continue to use incentive spirometer hourly while awake. Walk in home for 5- 10 minutes every 2 hours during the first week. Continue phase 1 diet today and start phase 2 diet tomorrow morning. Follow all instructions in the bariatric handbook and call with any questions. 1. Please call your doctor or come back to the emergency room should any new symptoms arise. 2. You will receive a courtesy call from [facility] 24-48 hours after discharge. 3. Activity: abstain from alcohol, practice limited stair climbing, no bending, no driving, no exercise, no illicit substances, no lifting, no sex, no tub bath, no work. 4. Diet: continue as discussed with Dr. Bolanos. 5. Dressing Change/Wound Care: Do not change or remove surgical dressings unless they are wet or soiled. 6. Call your doctor if: - Your temperature exceeds 101.5 F - You experience excessive pain or swelling - You have an unexpected reaction to medication - You have excessive bleeding - You experience continued vomiting/nausea - Your incision begins to separate - Your incision shows signs of infection such as increased redness, swelling, excessive pain, heat, or drainage (light blood or clear fluid is normal) 7. General instructions: No lifting greater than 5 lbs for the next 4 weeks[address] within 24 hours of taking narcotic pain medications. If you do not move your bowels in the next 2 days, please take milk of magnesia over the counter. Please follow the post op diet and do not advance your diet until you are seen in the office in about 2 weeks. Please walk around your home every hour or two to prevent blood clots from forming in your legs. You do not need to wake from sleeping to walk. Please sleep in a bed or couch to prevent kinking at the hips and knees. Please take your incentive spirometer (your lung wood shop teacher) home with you and use it for the next few days to prevent pneumonias. You may shower, no hot tubs, baths or swimming pools. Please call the office with any questions or concerns such as increasing abdominal pain, fever, chills, shortness of breath, chest pain, leg pain or swelling, or redness or drainage from your incisions. Do not hesitate to contact the office with any questions at . The patient's medical history has been reviewed and they are considered low risk for post op DVT and therefore DVT prophylaxis is not considered necessary. Travel after surgery was reviewed. The patient has not disclosed any travel plans during the first 30 days after surgery and they have been advised that within the first 30 days after surgery any bus, plane, train or car travel over 2 hours in duration is contraindicated due to the possibility of developing blood clots from immobility. Any travel, needs to include periods of ambulation of 10 minutes in duration every 2 hours. The patient was instructed to discuss any plans for travel during this period with their bariatric surgeon. Assessment: stable post-lap sleeve gastrectomy Discharge Date/Time: 07/28/21 09:20
[2021-07-27 18:30] LABS: Hematocrit 32.4 % (37.0-47.0); Hemoglobin 10.2 g/dl (12.0-16.0)
[2021-07-27 18:42] LABS: Anion Gap 16 (12-20); Blood Urea Nitrogen 10 mg/dL (9-16); Carbon Dioxide 16 mmol/L (22-29); Chloride 110 mmol/L (96-108); Creatinine Clr Calc Pharmacy 103.4; Estimated Glomerular Filt Rate > 60; Glucose Random 110 mg/dL (60-115); Sodium 138 mmol/L (135-145)
[2021-07-27 18:45] LABS: Glucose, Whole Blood 105 mg/dL (60-115)
[2021-07-27] MEDS: ondansetron HCL 4 MG/2 ML VIAL IVPUSH (19:58)
[2021-07-27] MEDS: Famotidine/PF 20 MG/2 ML VIAL IVPUSH (19:58)
[2021-07-27] MEDS: 0.9 % Sodium Chloride Flush 3 ML SYRINGE IVFLUSH (19:59)
[2021-07-27] MEDS: Labetalol HCL 100 MG TABLET PO (19:59)
[2021-07-27] MEDS: ceFAZolin Sodium/Dextrose,Iso 2 GM/50 ML PIGGYBACK IV (19:59)
--- NOTE | 2021-07-27 20:16 | PHA.MEDREC ---
Pharmacy Consult ? Medication Reconciliation Pharmacy has completed the medication reconciliation.
[2021-07-27 20:23] LABS: Glucose, Whole Blood 143 mg/dL (60-115)
[2021-07-27 23:57] LABS: Glucose, Whole Blood 171 mg/dL (60-115)
[2021-07-28 03:21] VITALS: BP 118/66; PULSE 75; RESP 16; TEMP 36.4; O2SAT 100
[2021-07-28 03:29] LABS: Glucose, Whole Blood 170 mg/dL (60-115)
[2021-07-28] MEDS: Insulin Lispro 100 UNIT/ML 3 ML VIAL SUBCUT ×3 (03:34→07:31)
[2021-07-28] MEDS: ondansetron HCL 4 MG/2 ML VIAL IVPUSH (03:34)
[2021-07-28] MEDS: Lactated Ringers 1,000 ML 100 ML IVCONT (05:40)
[2021-07-28 05:44] LABS: MANUAL DIFF FLAG NO
[2021-07-28 05:47] LABS: Hematocrit 31.4 % (37.0-47.0); Hemoglobin 10.2 g/dl (12.0-16.0); Imm Gran Abs Auto 0.01 X10*3/uL (0.00-0.03); Imm Gran Pct Auto 0.1 % (0.0-0.4); Lymphocytes Percent Auto 13.8 % (20-40); Mean Corpuscular HGB Conc 32.5 g/dl (31.0-35.0); Mean Corpuscular Volume 89.2 fL (80.0-98.0); Mean Platelet Volume 11.1 fL (9.4-12.3); Monocytes Absolute Auto 0.2 X10*3/uL (0.1-1.2); Monocytes Percent Auto 2.7 % (2-11); Neutrophils Absolute Auto 6.2 x10*3/uL (2.0-8.3); Neutrophils Percent Auto 83.4 % (45-73); Platelet Count 220 X10*3/uL (160-400); Red Blood Count 3.52 X10*6/uL (4.20-5.50); Red Cell Distribution Width 14.2 % (11.0-16.0); White Blood Count 7.5 X10*3/uL (4.8-10.8)
[2021-07-28 06:02] LABS: Anion Gap 15 (12-20); Blood Urea Nitrogen 12 mg/dL (9-16); Calcium 8.7 mg/dL (8.4-10.2); Carbon Dioxide 19 mmol/L (22-29); Chloride 106 mmol/L (96-108); Creatinine Clr Calc Pharmacy 99.5; Estimated Glomerular Filt Rate > 60; Glucose Random 188 mg/dL (60-115); Potassium 4.2 mmol/L (3.3-5.1); Sodium 136 mmol/L (135-145)
[2021-07-28 07:25] VITALS: BP 127/67; PULSE 89; RESP 18; TEMP 36.3; O2SAT 100
[2021-07-28] MEDS: Famotidine/PF 20 MG/2 ML VIAL IVPUSH (07:31)
[2021-07-28 08:09] LABS: Glucose, Whole Blood 152 mg/dL (60-115)
--- NOTE | 2021-07-28 09:15 | MHC.CM.PN ---
EMR REVIEWED, PT S/P LAP SLEEVE GASTRECTOMY, CM MET W/PT VIA ENGINEER, PT REPORTS SHE LIVES W/HER , IS INDEPENDENT, HAS A GLUCOMETER AND CHECKS HER BS IN AM, DOES NOT USE INSULIN AND A ELECTRONIC BP CUFF, PT HAS NO HOME SERVICES, PLAN FOR PT TO RETURN HOME W/NO SERVICES, PCP VERIFIED KENYON FUENTES, COVID X2, PT IS UNSURE WHICH VACCINE AND DOES NOT HAVE CARD, PT REPORTS HER SISTER DAYTON DOMINIQUE [phone] IS HER HCP AND COPY REQUESTED. D/C HOME TODAY SELF-CARE W/OUTPT FOLLOW-UP IN SURGEONS OFFICE, PT'S SISTER FOR TRANSPORT.
--- NOTE | 2021-07-28 19:36 | HO.POSTANES ---
Post Anesthesia Evaluation Post Anesthesia Evaluation Vital Signs: vital signs stable Anesthesia: General Endotracheal-GETA Mental Status: Awake Pain Control: Satisfactory Nausea/Vomiting: None Hydration: Adequate Anesthesia-Related Issues: No Anes. Related Issues Comments: Patient seen at 655am 07/28/21
== END 2021-07-28 09:20 | disposition home or self-care (01) | DRG 403 ==
LOC: HO.SSSA 11:59 → HO.S3 16:13
PROVIDERS: Nurse Practitioner; Physician Assistant; Physician Assistant Surgical; Admitting Provider Surgery; PCP Internal Medicine; Visit Provider Surgery
PROC: 0DB64Z3 Excision of Stomach, Percutaneous Endoscopic Approach, Vertical (ICD-10-PCS; CPT 43845; principal; 2021-07-27 12:50)
DX: E66.01 Morbid (severe) obesity due to excess calories (principal); K76.0 Fatty (change of) liver, not elsewhere classified; E11.9 Type 2 diabetes mellitus without complications; E78.5 Hyperlipidemia, unspecified; I10 Essential (primary) hypertension; Z68.37 Body mass index [BMI] 37.0-37.9, adult; F41.9 Anxiety disorder, unspecified; Z20.822 Contact with and (suspected) exposure to COVID-19; Z88.8 Allergy status to other drugs, medicaments and biological substances; Z79.899 Other long term (current) drug therapy
CPT/HCPCS: 36415; 80048; 80053; 80061; 81025; 82947; 83036; 83525; 84443; 85014; 85018; 85025; 85610; 85730; 86140; 86850; 86900; 86901; 87635; 88307; 88342; 99024; A4649; C9088; J0131; J0690; J1100; J1170; J2250; J2370; J2405; J3010

== ENCOUNTER → 2021-08-02 14:00 | Outpatient (BNVA) | payer OTHER, SELFPAY | PROVIDERS: PCP Internal Medicine; Visit Provider Physician Assistant Surgical | DX: Z98.84 Bariatric surgery status (principal) | CPT/HCPCS: 99212 ==